=== PATIENT | male | born 1980 | race Caucasian/White ===

== ENCOUNTER 2019-10-16 14:50 | Emergency (ER) | payer OTHER, BC, SELFPAY ==
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
[2019-10-16 15:14] VITALS: BP 146/88; PULSE 82; RESP 16; TEMP 37.1; O2SAT 99
--- NOTE | 2019-10-16 15:32 | PC.NURSE ---
1513- Pt has good equal strengths bilaterally. Steady gait noted.
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
== END 2019-10-16 16:35 | disposition home or self-care (01) ==
PROVIDERS: Emergency Provider Nurse Practitioner Family; PCP Emergency Medicine
DX: M51.36 Other intervertebral disc degeneration, lumbar region (principal); V49.9XXA Car occupant (driver) (passenger) injured in unspecified traffic accident, initial encounter; I10 Essential (primary) hypertension; F17.290 Nicotine dependence, other tobacco product, uncomplicated
CPT/HCPCS: 72100; 99213; G0463

== ENCOUNTER 2023-06-19 10:11 | Outpatient (CLI) | payer BC, SELFPAY ==
[2023-06-19 11:04] LABS: Hematocrit 40.9 % (42.0-52.0); Hemoglobin 13.2 g/dL (14.0-18.0); Mean Corpuscular HGB Conc 32.3 g/dl (32-36); Mean Corpuscular Hemoglobin 27.3 pg (26-34); Mean Corpuscular Volume 84.5 fl (80-100); Mean Platelet Volume 11.1 fl (7.4-10.4); Platelet Count Result 223 k/mm3 (150-375); Red Blood Count 4.84 M/mm3 (4.6-6.20); Red Cell Distribution Width 11.9 % (11.5-14.5); White Blood Count 7.7 K/mm3 (4.5-10.0)
[2023-06-19 11:11] LABS: Alanine Aminotransferase 23 U/L (6-50); Albumin Level 4.2 g/dL (3.5-5.1); Alkaline Phosphatase 71 U/L (38-126); Anion Gap 2 mmol/L (8-16); Aspartate Amino Transferase 26 U/L (17-59); Bilirubin,Total 0.7 mg/dL (0.2-1.3); Blood Urea Nitrogen 16 mg/dL (9-20); Calcium 9.1 mg/dL (8.4-10.2); Carbon Dioxide 30 mmol/L (22-30); Chloride 107 mmol/L (98-107); Cholesterol 193 mg/dL (0-200); Estimated Glomerular Filt Rate > 60; Glucose 93 mg/dL (65-110); HDL Direct 48 mg/dL; Potassium 4.1 mmol/L (3.4-5.0); Sodium 139 mmol/L (137-145); Triglycerides 99 mg/dL (<150)
[2023-06-19 11:22] LABS: LDL Cholesterol Direct 122 mg/dL
[2023-06-19 11:29] LABS: Vitamin D 25 Hydroxy 24.1 ng/mL
[2023-06-19 11:39] LABS: Thyroid Stimulating Hormone 0.819 uIU/mL (0.465-4.680)
[2023-07-01 18:06] LABS: Testosterone Free 12.7 pg/mL (35.0-155.0); Testosterone Total 110 ng/dL (250-1100)
== END 2023-06-19 10:12 | disposition home or self-care (01) ==
LOC: ANHLAB 10:12
PROVIDERS: PCP Emergency Medicine; Visit Provider Emergency Medicine
DX: E55.9 Vitamin D deficiency, unspecified (principal); E78.5 Hyperlipidemia, unspecified; R53.83 Other fatigue; E03.9 Hypothyroidism, unspecified
CPT/HCPCS: 36415; 80053; 80061; 82306; 84402; 84403; 84443; 85027

== ENCOUNTER 2023-10-12 09:44 | Outpatient (CLI) | payer BC, SELFPAY ==
[2023-10-16 15:44] LABS: Testosterone Free 9 pg/mL (35.0-155.0); Testosterone Total 94 ng/dL (250-1100)
== END 2023-10-12 09:45 | disposition home or self-care (01) ==
LOC: ANHLAB 09:45
PROVIDERS: PCP Emergency Medicine; Visit Provider Emergency Medicine
DX: E29.1 Testicular hypofunction (principal)
CPT/HCPCS: 36415; 84402; 84403

== ENCOUNTER 2023-11-20 12:08 | Emergency (ER) | payer BC, SELFPAY ==
--- NOTE | ~2023-11-20 | XR_ITS ---
EXAMINATION: XR knee LT min 4V DATE: 11/20/2023 12:37 INDICATION: Left knee pain. TECHNIQUE: 4 views of left knee were obtained. COMPARISON: None. FINDINGS: Bone alignment is normal. No fracture. There is mild osteoarthritis of medial compartment c haracterized by a tiny osteophyte. No joint space narrowing. No knee joint effusion. IMPRESSION: 1. Mild left knee osteoarthritis. Reviewed, dictated and finalized at location A.
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
[2023-11-20 12:22] VITALS: BP 150/100; PULSE 75; RESP 16; TEMP 37.1; O2SAT 98
== END 2023-11-20 13:07 | disposition home or self-care (01) ==
PROVIDERS: Emergency Provider Nurse Practitioner Family; PCP Emergency Medicine
DX: S83.92XA Sprain of unspecified site of left knee, initial encounter (principal); X50.9XXA Other and unspecified overexertion or strenuous movements or postures, initial encounter; M17.12 Unilateral primary osteoarthritis, left knee; I10 Essential (primary) hypertension; K21.9 Gastro-esophageal reflux disease without esophagitis; E78.1 Pure hyperglyceridemia
CPT/HCPCS: 73564; 99213; G0463

== ENCOUNTER 2023-12-02 08:53 | Outpatient (CLI) | payer BC, SELFPAY ==
--- NOTE | ~2023-12-02 | MR_ITS ---
EXAMINATION: MR knee LT wo con DATE: 12/02/2023 09:23 INDICATION: Left knee pain TECHNIQUE: Magnetic resonance imaging (MRI) of the left knee was performed without intravenous contra st. Sequences included coronal PD-weighted FSE, coronal PD-weighted FS FSE, sagittal T2-weighted FSE , sagittal PD-weighted FS FSE and axial PD weighted fat saturated FSE. COMPARISON: None. FINDINGS: Medial compartment: Complex tear at the medial side of the posterior horn of the medial meniscus. Minimal partial thickne ss cartilage loss with mild chondral surface irregularity along the posterior margin of the medial ti bial plateau and the anterior to central weightbearing medial femoral condyle. There is mild underlyi ng subarticular edema-like signal change along the posterior rim of the medial tibial plateau. Lateral compartment: Lateral meniscus is normal. Mild partial-thickness chondral fissuring with minimal subarticular edema -like signal change along the posterior rim of the lateral tibial plateau. Normal cartilage along the weightbearing lateral femoral condyle. Patellofemoral compartment: Cartilage with increased signal extends across a 7 x 4 mm focal depression of the articular cortex me asuring up to 3 mm in depth at the cephalad aspect of the lateral patellar facet likely sequela of a prior depressed fracture or collapsed osteochondral lesion. Deep chondral fissure without degenerativ e subchondral changes at the central aspect of the medial patellar facet. Trochlear cartilage is norm al. Ligaments and tendons: Anterior and posterior cruciate ligaments are normal. The fibular collateral ligament complex is norm al. Mild thickening and increased signal of the anterior margin of the proximal medial collateral lig ament with and minimal amount of surrounding fluid signal consistent with likely moderate grade sprai n/mild partial tear. Mild patellar and distal quadriceps tendinopathy. The visualized medial and late ral hamstring tendons as well as the iliotibial band are normal. Fluid: Minimal joint effusion but prominent synovitis throughout the recess of the joint space. No loose ost eochondral bodies identified. Moderate-sized, likely ruptured Graves's cyst with fluid tracking caudal ly from the cyst along the anteromedial margin of the medial head of the gastrocnemius muscle. Osseous/other: Bone alignment is normal. No acute fracture or pathologic marrow replacing process. IMPRESSION: 1. Complex tear at the posterior horn of the lateral meniscus. 2. Mild tricompartmental osteoarthritis with moderate to high-grade chondromalacia in the medial late ral compartments and moderate grade chondromalacia at the patella. 3. Chronic impaction fracture versus collapsed osteochondral lesion at the lateral patellar facet wit h cartilage extending across a small focally depressed region of the articular cortex. 4. Moderate grade sprain/partial tear along the anterior aspect of the proximal medial collateral lig ament. 5. Mild tendinopathy without tear of the patellar and quadriceps tendons. 0.6. Extensive synovitis at the recess of the joint space with only minimal joint effusion. 6. Moderate-sized likely ruptured Graves's cyst with fluid tracking caudally from the cyst along the m edial head gastrocnemius muscle belly. Reviewed, dictated and finalized at location A. IMPRESSION: 1. Complex tear at the posterior horn of the lateral meniscus. 2. Mild tricompartmental osteoarthritis with moderate to high-grade chondromala isis in the medial lateral compartments and moderate grade chondromalacia at the patella. 3. Chronic impaction fracture versus collapsed osteochondral lesion at the late ral patellar facet with cartilage extending across a small focally depressed re gion of the articular cortex. 4.
== END 2023-12-02 08:54 ==
LOC: GOSHIMG 08:54
PROVIDERS: PCP Emergency Medicine; Visit Provider Emergency Medicine
DX: S83.272A Complex tear of lateral meniscus, current injury, left knee, initial encounter (principal); S83.412A Sprain of medial collateral ligament of left knee, initial encounter; X58.XXXA Exposure to other specified factors, initial encounter; M71.22 Synovial cyst of popliteal space [Baker], left knee; M17.12 Unilateral primary osteoarthritis, left knee
CPT/HCPCS: 73721

== ENCOUNTER 2024-02-12 15:30 | Outpatient (RCR) | payer BC, SELFPAY ==
--- NOTE | 2024-01-09 14:58 | PTOPEVAL1 ---
Assessment and note entered by Dragan Thacker Evaluation Information Assessment Status Evaluation Diagnosis tear of medial meniscus S83 242A ICD-10 Condition Codes (PT) Pain in left knee M25.562 Onset 11/14/23 Subjective Information Pt. reports that around the beginning of November he step out of his truck and felt and pop in the left knee after twisting. He states that initial pain was behind the left knee. He states that he has been doing better as of recently. He reports that MRI revealed a tear in the meniscus. He reports that he currently works as a wiring mechanic and states that he can limit his walking with work. He reports that work does require kneeling and squatting, and states that he does have pain with these activities. He reports going up and down stairs can cause pain as well. He reports that he has been limited at work and is avoiding long durations of standing, climbing, crouching and kneeling. He states that these are activities that he has to be able to tolerate and that he could prior to his injury. He reports that his goal is to be able to return to work related duties without limitation. Reported Pain Level Pain Score 4: Self Report Assessment PT Clinical Summary Pt. is a 43 year old male who enters the clinic with a diagnosis of left knee pain due to meniscus tear. He presents with impaired knee ROM on the left, impaired proximal l.e. strength, impaired gait and pain. Continued skilled PT is indicated in order to improve these areas to allow the pt. to be able to return to all work related duties without limitaiton. Plan of Care Interventions Electrical Stimulation,Gait Training,Hot Pack/Cold Pack,Manual Therapy,Neuro Re-education,Patient/ Caregiver Educati,Therapeutic Activities, Therapeutic Exercise PT Services Indicated Yes Treatment Frequency and 2x/week x 8 visits Duration These treatments will address the objective and functional deficits as defined above. The patient will be advanced safely and appropriately in order for the patient to progress towards his/her prior level of function. Additional exercises will be introduced and as well as a comprehensive home exercise program upon discharge, if needed, ?to ensure carryover of functional gains achieved in the clinic. This treatment plan has been reviewed and agreement upon by the patient.
--- NOTE | 2024-01-09 14:58 | OPREHPOC ---
Outpatient Therapy Plan of Care This is a Multidisciplinary Plan of Care that may contain components documented by all disciplines (PT, OT, and ST.) PT Problem 1 PT Problem #1 Knowledge Deficit PT Goal 1 Goal / Goal Update Pt. will be independent with a HEP addressing strength and mobility presybeterian. Target Visit 2 PT Problem 2 PT Problem #2 Impaired Range of Motion PT Goal 1 Goal / Goal Update Pt. will achieve 0-135 degrees active ROM at the left knee Target Visit 8 PT Problem 3 PT Problem #3 Impaired Gait PT Goal 1 Goal / Goal Update Pt. will ambulate without deviation. PT Problem 4 PT Problem #4 Impaired Functional Mobil PT Goal 1 Goal / Goal Update Pt. will be able to navigate steps with reciprocal pattern without deviation for 10-15 steps Pt. will be able to squat to 90 degrees knee flexion in repetition without noted pain increase. Pt. will be able to attain the kneeling position for duration of 2-5 minutes to complete work related duties.
--- NOTE | 2024-02-12 16:01 | PTOPDC ---
Assessment and note entered by Jeannette Montana, PT Discharge Report Assessment Status Discharge Diagnosis tear of medial meniscus S83 [id number] ICD-10 Condition Codes (PT) Pain in left knee M25.562 Onset 11/14/23 Subjective Information is working but still have the restrictions from the dr; have been doing the exercises at home; use the knee brace at work and as needed; feel like ready to be finished with therapy, going to call dr and see if can be released for full work duty. Reported Pain Level Pain Score Self Report Additional Pain Score Comments pain range in the past week 0-6/10; L knee tight, stiff; pinch if try to stretch too fast increase pain: first wake up in AM, when first stand up from sitting over 20 minutes; decrease pain: sit and rest, advil 3-4 x/day; wearing compression brace over knee no ice lately not have any swelling in knee; Assessment PT Clinical Summary Naseem has received a total of 7 PT sessions. Compared to the initial evaluation: pain from 4-7/10 to 0-6/10; self assessment LE functional scale rating from 8% to .5% limitation; increase strength L hip/knee and activity tolerance; active ROM of L knee 0-120' without pain; increase L hamstring length, equal to R; Activity tolerance: alternating step pattern on 12 stairs; standing squat to 90' x 10 reps; kneeling on foam pad x 5 minutes- simulating work tasks, kneel on both knees, R only, L only and moving his arms; performed all these without pain. The goals were achieved, except knee flexion of 135'. Discharge PT services. Plan of Care PT Services Indicated No
== END 2024-02-13 09:45 | disposition home or self-care (01) ==
LOC: ANHPT 15:30
PROVIDERS: PCP Emergency Medicine; Visit Provider Orthopaedic Surgery
DX: S83.242A Other tear of medial meniscus, current injury, left knee, initial encounter (principal)
CPT/HCPCS: 97110; 97161; 97530

== ENCOUNTER 2024-03-18 10:35 | Outpatient (CLI) | payer BC, SELFPAY ==
[2024-03-18 12:20] LABS: Alanine Aminotransferase 27 U/L (6-50); Albumin Level 4.3 g/dL (3.5-5.1); Alkaline Phosphatase 66 U/L (38-126); Anion Gap 5 mmol/L (4-12); Aspartate Amino Transferase 26 U/L (17-59); Bilirubin,Total 0.6 mg/dL (0.2-1.3); Blood Urea Nitrogen 20 mg/dL (9-20); Calcium 8.9 mg/dL (8.4-10.2); Carbon Dioxide 29 mmol/L (22-30); Chloride 104 mmol/L (98-107); Cholesterol 180 mg/dL (0-200); Estimated Glomerular Filt Rate > 60; Glucose 91 mg/dL (65-110); HDL Direct 52 mg/dL; Potassium 4.2 mmol/L (3.4-5.0); Sodium 138 mmol/L (137-145); Triglycerides 62 mg/dL (<150)
[2024-03-18 12:30] LABS: LDL Cholesterol Direct 98 mg/dL
[2024-03-18 12:42] LABS: Vitamin D 25 Hydroxy 25.6 ng/mL
== END 2024-03-18 10:36 | disposition home or self-care (01) ==
PROVIDERS: PCP Emergency Medicine; Visit Provider Emergency Medicine
DX: E55.9 Vitamin D deficiency, unspecified (principal); R79.89 Other specified abnormal findings of blood chemistry; E78.5 Hyperlipidemia, unspecified
CPT/HCPCS: 36415; 80053; 80061; 82306; 84402; 84403

== ENCOUNTER 2024-08-06 14:11 | Outpatient (CLI) | payer BC, SELFPAY ==
--- NOTE | ~2024-08-06 | XR_ITS ---
XR knee LT min 4V Ordering provider: Timbo Coughlin MD History: . M25.562 - Pain in left knee . Comparison: November 20, 2023 FINDINGS: BONES: No acute fracture or dislocation. Osteochondral defect is seen in the medial femoral condyle. JOINT SPACES: Normal. SOFT TISSUES: Normal. IMPRESSION: No acute osseous abnormality left knee. Osteochondral defect in the medial femoral condyle. Follow-up advised. Reviewed, dictated and finalized at location A.
== END 2024-08-06 14:12 | disposition home or self-care (01) ==
PROVIDERS: PCP Emergency Medicine; Visit Provider Orthopaedic Surgery
DX: M25.562 Pain in left knee (principal)
CPT/HCPCS: 73564

== ENCOUNTER 2024-11-21 07:34 | Outpatient (CLI) | payer BC, SELFPAY ==
[2024-11-21 08:44] LABS: Alanine Aminotransferase 19 U/L (6-50); Albumin Level 4.3 g/dL (3.5-5.1); Alkaline Phosphatase 58 U/L (38-126); Anion Gap 7 mmol/L (4-12); Aspartate Amino Transferase 26 U/L (17-59); Bilirubin,Total 0.8 mg/dL (0.2-1.3); Blood Urea Nitrogen 24 mg/dL (9-20); Calcium 9.3 mg/dL (8.4-10.2); Carbon Dioxide 26 mmol/L (22-30); Chloride 104 mmol/L (98-107); Estimated Glomerular Filt Rate > 60; Glucose 102 mg/dL (65-110); Potassium 4.3 mmol/L (3.4-5.0); Sodium 137 mmol/L (137-145); Total Protein 7.2 g/dL (6.3-8.2)
== END 2024-11-21 07:35 | disposition home or self-care (01) ==
LOC: ANHLAB 07:35
PROVIDERS: PCP Emergency Medicine; Visit Provider Emergency Medicine
DX: E78.5 Hyperlipidemia, unspecified (principal); E55.9 Vitamin D deficiency, unspecified; R89.1 Abnormal level of hormones in specimens from other organs, systems and tissues
CPT/HCPCS: 36415; 80053; 82306

== ENCOUNTER 2025-02-09 12:37 | Emergency (ER) | payer BC, SELFPAY ==
[2025-02-09 12:46] VITALS: BP 157/94; PULSE 93; RESP 16; TEMP 36.6; O2SAT 98
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
== END 2025-02-09 13:20 | disposition home or self-care (01) ==
PROVIDERS: Emergency Provider Nurse Practitioner; PCP Emergency Medicine
DX: M21.42 Flat foot [pes planus] (acquired), left foot (principal); M21.41 Flat foot [pes planus] (acquired), right foot; M79.672 Pain in left foot; M79.671 Pain in right foot; I10 Essential (primary) hypertension; K21.9 Gastro-esophageal reflux disease without esophagitis; E78.1 Pure hyperglyceridemia; F17.290 Nicotine dependence, other tobacco product, uncomplicated
CPT/HCPCS: 99212; G0463